=== PATIENT | female | born 1960 | race Caucasian/White ===

== ENCOUNTER → 2020-06-13 | Outpatient (CLI) | payer OTHER | END | disposition home or self-care (01) | LOC: ONCLAB 14:49 | PROVIDERS: ATTEND Internal Medicine Hematology & Oncology | DX: D75.1 Secondary polycythemia (principal) | CPT/HCPCS: 36415; 81270; 82668 ==

== ENCOUNTER → 2020-06-20 | Outpatient (CLI) | payer OTHER ==
--- NOTE | 2020-06-20 14:38 | KCIC ---
Examination: CT LOW DOSE LUNG SCREENING History: Lung cancer screening, smoker of 30 yrs., 1pk/day. / Hx. polycythemia Comparison/Correlation: None Findings: Axial images were obtained without contrast. Low-dose lung cancer screening CT protocol. Right lower paratracheal lymph node with short axis diameter of 1.3 cm is present on axial image 15 of series 2. Other lymph nodes are present but not enlarged involving the superior mediastinum. Tracheobronchial tree is unremarkable. Emphysematous involvement of the lung mac noted. Right anterior basilar discoid atelectasis or scarring is present. No suspicious pulmonary nodule or mass. Postoperative cervical spine fusion partially seen. Partially visualized upper abdomen is unremarkable other than mild fatty infiltration of the liver. Low-attenuation left adrenal gland lesion with a diameter of up to 1 cm is present likely representing benign adenoma. Impression: Lungs rather category 1S-negative. No suspicious pulmonary nodule. There is a slightly enlarged right lower paratracheal lymph node. Other nonenlarged lymph nodes are also seen. Correlate with clinical history and determine short-term interval follow-up CT to assess stability of stability is unknown. Emphysema. PQRS Compliance Statement: One or more of the following individualized dose reduction techniques were utilized for this examination: 1. Automated exposure control 2. Adjustment of the mA and/or kV according to patient size 3. Use of iterative reconstruction technique Electronically signed by: Mauricio Navarro MD (06/20/2020 2:35 PM) [id number]
== END ==
LOC: KCIC CT 13:55
PROVIDERS: ATTEND Internal Medicine Hematology & Oncology
DX: Z12.2 Encounter for screening for malignant neoplasm of respiratory organs (principal); D75.1 Secondary polycythemia; J43.9 Emphysema, unspecified; K76.0 Fatty (change of) liver, not elsewhere classified; Z87.891 Personal history of nicotine dependence
CPT/HCPCS: G0297

== ENCOUNTER 2021-09-29 01:21 | Emergency (ER) | payer OTHER ==
[~2021-09-29] VITALS: Ht 157.5 cm; Wt 90.9 kg
[2021-09-29] MEDS ORDERED: LIDOCAINE (700MG/PATCH) PATCH. TD ONE (02:00)
[2021-09-29] MEDS ORDERED: HYDROcodone/APAP 5/325MG 1 TAB TABLET PO ONE ×2 (02:00→04:15)
--- NOTE | 2021-09-29 02:05 | PHYS DOC ---
Past Medical History Past Surgical History: Hysterectomy, Tonsillectomy Smoking Status: Current Every Day Smoker Additional Information: 35 year smoker Alcohol Use: None General Adult EDM: Chief Complaint: HIP PAIN HPI: HPI: 61 yo F PMH DM, HLD and pulmonary hypertension (recently diagnosed on 4L NC and prednisone 5mg daily) presents to the ed with c/o left hip pain that started 3 days ago after patient was underneath her computer desk rearranging wiring. Patient states pain is sharp and radiates down her left leg when leaning forward and backwards. No relief with salonpas. Has never had back pain like this. Denies any history of trauma, history of IV drug use, history of cancer, prior history of sciatica, history of malignancy, history of immunocompromise state, neurologic complaints including saddle anesthesia, weakness or paresthesias, urinary retention, bowel or bladder incontinence, night pain, fever/chills/night sweats, unexplained weight loss, anticoagulants or coagulopathy, prolonged steroid use, or presence of contusions or abrasions. Review of Systems: Review of Systems: Constitutional: Denies fever or chills. [] Eyes: Denies change in visual acuity. [] HENT: Denies nasal congestion or sore throat. [] Respiratory: Denies cough or shortness of breath. [] Cardiovascular: Denies chest pain or edema. [] GI: Denies abdominal pain, nausea, vomiting, bloody stools or diarrhea. [] : Denies saddle anesthesia or incontinence Musculoskeletal: Denies flank pain or joint pain. [] Integument: Denies rash or diaphoresis Neurologic: Denies headache, focal weakness or sensory changes. [] Endocrine: Denies polyuria or polydipsia. [] Lymphatic: Denies swollen glands. [] Psychiatric: Denies depression or anxiety. [] Heart Score: C/O Chest Pain: No Risk Factors: Risk Factors: DM, Current or recent (<one month) smoker, HTN, HLP, family history of CAD, obesity. Risk Scores: Score 0 - 3: 2.5% MACE over next 6 weeks - Discharge Home Score 4 - 6: 20.3% MACE over next 6 weeks - Admit for Clinical Observation Score 7 - 10: 72.7% MACE over next 6 weeks - Early Invasive Strategies Allergies: Allergies: Allergies Coded Allergies Type Severity Reaction Last Updated Verified No Known Drug Allergies 09/29/21 No Physical Exam: PE: Constitutional: Well developed, well nourished, no acute distress, non-toxic appearance. HENT: Normocephalic, atraumatic, Eyes: EOMI, conjunctiva normal, no discharge. Neck: Normal range of motion, supple, Cardiovascular: S1/2 present, regular rhythm Lungs & Thorax: Speaking in full sentences, bilateral equal chest rise, no tachypnea or increased work of breathing Abdomen: soft, no tenderness, Skin: Warm, dry, no erythema, no rash. [] Back: No midline spinal step offs or tenderness, no CVA tenderness, pain over left side of sacram and left paraspinal L3-5 region-exacerbated with left straight leg raise/trunk flexion and extention, reports pain alleviated at rest Extremities: No tenderness, no cyanosis, no lower extremity edema Neurologic: Alert and oriented X 3, normal motor function, normal sensory function, no focal deficits noted. [] Psychologic: Affect normal, judgement normal, mood normal. [] Current Patient Data: Vital Signs: Vital Signs Date Time Temp Pulse Resp B/P (MAP) Pulse Ox O2 Delivery O2 Flow Rate FiO2 09/29/21 01:39 98.7 99 16 133/70 (91) Nasal Cannula 4.0 98.7 EKG: EKG: [] Radiology/Procedures: Radiology/Procedures: IMAGING REPORT Signed PATIENT: BERE GAMBOA ACCOUNT: [id number] : 1960 LOCATION: ER AGE: 61 SEX: F EXAM STATUS: REG ER ORD. PHYSICIAN: BERE TURNER DO REASON: low back pain PROCEDURE: CT PELVIS WO CONTRAST CT LUMBAR SPINE WO, CT PELVIS WO History:Reason: low back pain / Spl. Instructions: / History: Technique: Noncontrast CT was performed of the lumbar spine and pelvis. Multiplanar reconstructions were performed. Exposure: One or more of the following individualized dose reduction techniques were utilized for this examination: 1. Automated exposure control 2. Adjustment of the mA and/or kV according to patient size 3. Use of iterative reconstruction technique. Comparison: None Findings: Lumbar spine: Acute L2 inferior endplate fracture with mild height loss. Grade 1 anterolisthesis L4 on L5. T12-L1: No canal or neuroforaminal narrowing. L1-L2: Minimal disc bulge. No canal or neuroforaminal narrowing. L2-L3: Small disc bulge. Mild facet arthropathy. No canal narrowing. Mild bilateral neuroforaminal narrowing. L3-L4: Broad-based disc bulge. Moderate facet arthropathy. Mild canal narrowing. Subarticular recess narrowing. Moderate bilateral neuroforaminal narrowing. L4-L5: Anterolisthesis. Disc uncovering. Small disc bulge. Advanced facet arthropathy. No canal narrowing. Ligament of flavum thickening. Mild bilateral neuroforaminal narrowing. L5-S1: Small disc bulge. Moderate facet arthropathy. No canal narrowing. Mild bilateral neuroforaminal narrowing. Pelvis: Mild colonic diverticulosis. Normal alignment of the hips. Linear lucency through the inferior aspect of the sacrum above the sacrococcygeal junction (series 2 image 47 and series 5 image 62). Impression: Lumbar spine CT: 1. Acute L2 inferior endplate compression fracture. 2. Multilevel lumbar spondylosis. Pelvis CT: 1. Lucency through the inferior aspect of the sacrum, may represent nondisplaced fracture. Recommend correlation with point tenderness. Electronically signed by: Rodriguez Graves DO (09/29/2021 2:47 AM) [facility] DICTATED and SIGNED BY: RODRIGUEZ GRAVES DO DATE: 09/29/21 [id number] Course & Med Decision Making: Course & Med Decision Making Pertinent Labs and Imaging studies reviewed. (See chart for details) On reevaluation patient reports her pain has improved with analgesia anytime she moves her pain recurs. Pain is sharp, not tingling or burning. States she has broken her coccyx in the past. CT imaging concerning for inferior sacral fracture, patient does have point tenderness at this location. CT imaging also shows marked disc herniations at all levels, worse at the L3-L4 location. Patient has no sensory or motor weakness, no saddle anesthesia and no incontinence. Provided work note for patient recommend rest no rigorous physical activity, hydration and analgesia. Understands risk of addiction, constipation apnea with opioid medications. Understands she can take this medi cation in addition to [id number] NSAIDs. Will also prescribe lidocaine patch. Will discharge home with strict ED return precautions were given for saddle anesthesia, incontinence, fever, motor or sensory deficits or severe pain. Encouraged urgent outpatient follow-up with PMD for reevaluation orthopedic surgery as needed for definitive management of back pain. Life-threatening processes were considered but are low suspicion at this time, given history, physical exam and ED workup. Pt was educated on all prescription medications and adverse effects. All patient's questions were answered and pt was stable at time of discharge. Life/limb-threatening differential includes but is not limited to, aortic dissection/aneurysm, cauda equina syndrome, transverse myelitis, spinal cord/epidural compression syndromes, discitis, spinal stenosis, epidural abscess or hematoma, osteomyelitis, disc herniation, surgical abdomen, stable or unstable fracture, renal/ureteral colic, sepsis, meningitis, musculoskeletal inj ury, traumatic injury, intraabdominal/retroperitoneal or pelvic bleeding. I have spoken with the patient and/or caregivers. I explained the patient's condition, diagnoses and treatment plan based on the information available to me at this time. I have answered the patient and/or caregiver's questions and addressed any concerns. The patient and/or caregivers have a good understanding of patient's diagnosis, condition and treatment plan as can be expected at this point. Vital signs have been stable. Patient's condition is stable and appropriate for discharge from the emergency department. Patient will pursue further outpatient evaluation with primary care physician or other designated or consulting physician as outlined in the discharge instructions. The patient and/or caregivers are agreeable to this plan of care and follow-up instructions have been explained in detail. The patient and/or caregivers have received these instructions in written form and have expressed an understanding of the discharge instructions. The patient and/or caregivers are aware that any significant change of condition or worsening of symptoms should prompt immediate return to this or the closest emergency department or call to 911. Lion Disclaimer: Lion Disclaimer: This electronic medical record was generated, in whole or in part, using a voice recognition dictation system. Departure Departure Impression: Primary Impression: Sacral fracture, closed Additional Impression: Lumbar disc herniation with radiculopathy Disposition: HOME / SELF CARE / HOMELESS Condition: STABLE Referrals: CHARLIE WESTBROOK M.D. (PCP) Follow-up with your primary care physician in 24 to 48 hours OR FOLLOW UP WITH FAMILY MEDICINE: [address], [address] [place] [address] Patient Instructions: Back Pain, Adult, Herniated Disk, Lumbosacral Radiculopathy Additional Instructions: FOLLOW UP WITH ORTHOPEDICS: FOR DEFINITIVE MANAGEMENT if pain persists, consider advanced imaging Orthopaedic Surgery [address], [address] [place] [address] EMERGENCY DEPARTMENT GENERAL DISCHARGE INSTRUCTIONS Thank you for coming to [facility] Emergency Department (ED) today and trusting us with you care. We trust that you had a positive experience in our Emergency Department. If you wish to speak to the department management, you may call the Director at [phone]. YOUR FOLLOW UP INSTRUCTIONS ARE FOLLOWS: 1. Do you have a private Doctor? If you do not have a private doctor, please ask for a resource list of physicians or clinics that may be able to assist you with follow up care. 2. The Emergency Physicain has interpreted your x-rays. The X-Ray specialist will also review them. If there is a change in the findings, you will be notified in 48 hours when at all possible. 3. A lab test or culture has been done, your results will be reviewed and you will be notified if you need a change in treatment. ADDITIONAL INSTRUCTIONS AND INFORMATION: 1. Your care today has been supervised by a physician who is specially trained in emergency care. Many problems require more than one evaluation for a complete diagnosis and treatment. We recommend that you schedule your follow up appointment as recommended to ensure complete treatment of you illness or injury. If you are unable to obtain follow up care and continue to have a problem, or if your condition worsens, we recommend that you return to the ED. 2. We are not able to safely determine your condition over the phone nor are we able to give sound medical advice over the phone. For these safety reasons, if you call for medical advice we will ask you to come to the ED for further evaluation. 3. If you have any questions regarding these discharge instructions please call the ED at [phone]. SAFETY INFORMATION: In the interest of safety, wellness, and injury prevention; we encourage you to wear your sealbelt, if you smoke; quite smoking, and we encourage family to use a protective helmet for bicycling and other sporting events that present an increased risk for head injury. IF YOUR SYMPTOMS WORSEN OR NEW SYMPTOMS DEVELOP, OR YOU HAVE CONCERNS ABOUT YOUR CONDITION; OR IF YOUR CONDITION WORSENS WHILE YOU ARE WAITING FOR YOUR FOLLOW UP APPOINTMENT; EITHER CONTACT YOUR PRIMARY CARE DOCTOR, THE PHYSICIAN WHOSE NAME AND NUMBER YOU WERE GIVEN, OR RETURN TO THE ED IMMEDIATELY. Scripts Ibuprofen (Ibuprofen) 600 Mg Tablet 600 MG PO QIDPRN PRN for PAIN, #30 TAB Prov: BERE TURNER DO 09/29/21 Hydrocodone Bit/Acetaminophen (HYDROCODONE-APAP 5-325 ) 1 Tab Tablet 1 TAB PO PRN Q6HRS PRN for PAIN for 4 Days, #16 TAB 0 Refills Prov: BERE TURNER DO 09/29/21 Lidocaine (Lido Antony) 1 Each Adh..patch 1 EACH TP DAILY for 5 Days, #5 PATCH Apply 1 patch for 12 hours, remove for another 12 hours. May repeat, 1 patch per day as instructed above. Prov: BERE TURNER DO 09/29/21 BERE TURNER DO Sep 29, 2021 02:05
[2021-09-29 02:20] LABS: BILIRUBIN,URINE NEGATIVE (NEG); CLARITY,URINE CLEAR; COLOR,URINE YELLOW; NITRITE,URINE NEGATIVE (NEG); PH,URINE 5.5 (<5.0-8.0); PROTEIN,URINE NEGATIVE (NEG-TRACE); UROBILINOGEN,URINE 0.2 mg/dL (0.2 mg/dL)
[2021-09-29 02:33] LABS: AMORPHOUS SEDIMENT,UR PRESENT /HPF; BACTERIA,URINE FEW /HPF (0-FEW); RBC,URINE 0 /HPF (0-2)
--- NOTE | 2021-09-29 02:49 | RAD ---
CT LUMBAR SPINE WO, CT PELVIS WO History:Reason: low back pain / Spl. Instructions: / History: Technique: Noncontrast CT was performed of the lumbar spine and pelvis. Multiplanar reconstructions w ere performed. Exposure: One or more of the following individualized dose reduction techniques were utilized for thi s examination: 1. Automated exposure control 2. Adjustment of the mA and/or kV according to patient size 3. Use of iterative reconstruction technique. Comparison: None Findings: Lumbar spine: Acute L2 inferior endplate fracture with mild height loss. Grade 1 anterolisthesis L4 on L5. T12-L1: No canal or neuroforaminal narrowing. L1-L2: Minimal disc bulge. No canal or neuroforaminal narrowing. L2-L3: Small disc bulge. Mild facet arthropathy. No canal narrowing. Mild bilateral neuroforaminal n arrowing. L3-L4: Broad-based disc bulge. Moderate facet arthropathy. Mild canal narrowing. Subarticular recess narrowing. Moderate bilateral neuroforaminal narrowing. L4-L5: Anterolisthesis. Disc uncovering. Small disc bulge. Advanced facet arthropathy. No canal narr owing. Ligament of flavum thickening. Mild bilateral neuroforaminal narrowing. L5-S1: Small disc bulge. Moderate facet arthropathy. No canal narrowing. Mild bilateral neuroforamin al narrowing. Pelvis: Mild colonic diverticulosis. Normal alignment of the hips. Linear lucency through the inferior aspect of the sacrum above the sacrococcygeal junction (series 2 image 47 and series 5 image 62). Impression: Lumbar spine CT: 1. Acute L2 inferior endplate compression fracture. 2. Multilevel lumbar spondylosis. Pelvis CT: 1. Lucency through the inferior aspect of the sacrum, may represent nondisplaced fracture. Recommend correlation with point tenderness. Electronically signed by: Rodriguez Graves DO (09/29/2021 2:47 AM) [facility] [place]
[2021-09-29] MEDS ORDERED: IBUPROFEN 200 MG TABLET. PO ONE (04:15)
[2021-09-29] MEDS ORDERED: HYDR-2761 PO ×2 (04:50→05:09)
[2021-09-29] MEDS ORDERED: IBUP-985 PO ×2 (04:50→05:09)
[2021-09-29] MEDS ORDERED: LIDO1ADH78 TP ×2 (04:50→05:09)
[2021-09-29 05:28] VITALS: BP 142/61
== END 2021-09-29 05:25 | disposition home or self-care (01) ==
LOC: ER 01:21
DX: S32.10XA Unspecified fracture of sacrum, initial encounter for closed fracture (principal); M51.16 Intervertebral disc disorders with radiculopathy, lumbar region; M47.26 Other spondylosis with radiculopathy, lumbar region; F17.200 Nicotine dependence, unspecified, uncomplicated; I10 Essential (primary) hypertension; E11.9 Type 2 diabetes mellitus without complications; K57.30 Diverticulosis of large intestine without perforation or abscess without bleeding; Z90.710 Acquired absence of both cervix and uterus; X58.XXXA Exposure to other specified factors, initial encounter; Y93.89 Activity, other specified; Y92.89 Other specified places as the place of occurrence of the external cause; Y99.8 Other external cause status
CPT/HCPCS: 72131; 72192; 81001; 87086; 99285-25